=== PATIENT | female | born 1985 | race Caucasian/White ===

== ENCOUNTER 2021-11-26 12:15 | Outpatient (CLI) | payer OTHER ==
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
== END 2021-11-26 12:16 | disposition home or self-care (01) ==
LOC: DI.S 12:15
PROVIDERS: ATTEND Naturopath
DX: R07.81 Pleurodynia (principal); R07.1 Chest pain on breathing

== ENCOUNTER 2023-11-14 15:33 | Outpatient (CLI) | payer SELFPAY ==
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
== END 2023-11-14 15:34 | disposition home or self-care (01) ==
LOC: DI.S 15:33
PROVIDERS: ATTEND Family Medicine
DX: R07.9 Chest pain, unspecified (principal); R06.02 Shortness of breath; R05.9 Cough, unspecified